=== PATIENT | male | born 1985 | race Caucasian/White ===

== ENCOUNTER 2021-10-16 11:22 | Emergency (ER) | payer BC, OTHER ==
[~2021-10-16] VITALS: Ht 182.9 cm; Wt 86.2 kg
[2021-10-16] MEDS ORDERED: CEFTRIAXONE 500 MG VIAL IM ONE (12:00)
[2021-10-16] MEDS ORDERED: CEFTRIAXONE 500 MG VIAL ONE (12:05)
[2021-10-16 12:19] LABS: *BILIRUBIN,URIN NEGATIVE (NEGATIVE); *BLOOD, URINE NEGATIVE (NEGATIVE); *CLARITY,URINE CLEAR (CLEAR); *COLOR,URINE LIGHT YELLOW (YELLOW); *KETONES,URINE NEGATIVE (NEGATIVE); *UROBILINOGEN,URINE 0.2 E.U./dl (NORMAL); LEUKOCYTE ESTERASE ,URINE NEGATIVE (NEGATIVE); NITRITE, URINE NEGATIVE (NEGATIVE); UGLUCOSE NEGATIVE (NEGATIVE)
[2021-10-16] MEDS ORDERED: DOXY-326 PO (12:19)
--- NOTE | 2021-10-16 12:52 | NUR ---
IM injection given as noted, patient tolerated it well, no reactions. DC , Rx and follow up instructions given and explained to patient who states he understands all instructions
[2021-10-18 04:06] LABS: *GC NAA Negative (Negative); *TRIC.VAG. NAA Negative (Negative)
== END 2021-10-16 12:54 | disposition home or self-care (01) ==
LOC: ER 11:22
DX: R30.0 Dysuria (principal)
CPT/HCPCS: 81003; 87491; 96372; 99283; J0696; A4663

== ENCOUNTER 2022-05-07 15:38 | Emergency (ER) | payer BC ==
[~2022-05-07] VITALS: Ht 180.3 cm; Wt 86.2 kg
[~2022-05-07 15:38] MED LIST: DOXY-326 PO
[2022-05-07] MEDS ORDERED: ONDANSETRON ODT 4 MG TAB.RAPDIS SL ONE (18:45)
[2022-05-07] MEDS ORDERED: ONDANSETRON ODT 4 MG TAB.RAPDIS ONE (18:46)
[2022-05-07] MEDS ORDERED: IOHEXOL 300MG/ML 100 ML INFUS..BTL ONE (18:47)
[2022-05-07] MEDS ORDERED: SWABABLE VALVE TRANSFER SET EA MC ONE (18:47)
[2022-05-07] MEDS ORDERED: IV NORMAL SALINE 250 ML IV ONE (18:48)
--- NOTE | 2022-05-07 19:00 | NUR ---
Recieved report from Doretha RANKIN.
[2022-05-07] MEDS ORDERED: ONDA4TAB5 PO (20:08)
--- NOTE | 2022-05-07 20:37 | NUR ---
Patient discharged to home in stable condition. A/O x4. NAD noted. Ambulatory with a steady gait. All belongings with patient. Written and verbal after care instructions given. Patient verbalizes understanding of instructions. Stressed follow up or return to ER for worsening s/s.
[2022-05-07 20:53] VITALS: BP 122/75
== END 2022-05-07 20:37 | disposition home or self-care (01) ==
LOC: ER 15:38
DX: R10.31 Right lower quadrant pain (principal); R11.0 Nausea
CPT/HCPCS: 99285; 74177; Q9967; A4663; Q0162

== ENCOUNTER 2022-05-10 00:12 | Emergency (ER) | payer BC ==
[~2022-05-10] VITALS: Ht 182.9 cm; Wt 71.2 kg
[~2022-05-10 00:12] MED LIST changes: +ONDA4TAB5 PO
[2022-05-10] MEDS ORDERED: KETOROLAC TROMETHAMINE 15 MG INJ IVP ONE (01:00)
[2022-05-10] MEDS ORDERED: IV NORMAL SALINE 1000 ML BAG IV ONE (01:00)
[2022-05-10] MEDS ORDERED: METOCLOPRAMIDE HCL 10 MG/2 ML VIAL IV ONE (01:00)
[2022-05-10] MEDS ORDERED: diphenhydrAMINE 50 MG/1 ML VIAL IV ONE (01:00)
[2022-05-10 01:18] LABS: *BILIRUBIN,URIN NEGATIVE (NEGATIVE); *BLOOD, URINE NEGATIVE (NEGATIVE); *CLARITY,URINE CLEAR (CLEAR); *COLOR,URINE YELLOW (YELLOW); *KETONES,URINE NEGATIVE (NEGATIVE); *UROBILINOGEN,URINE 0.2 E.U./dl (NORMAL); LEUKOCYTE ESTERASE ,URINE NEGATIVE (NEGATIVE); NITRITE, URINE NEGATIVE (NEGATIVE); UGLUCOSE NEGATIVE (NEGATIVE)
[2022-05-10 01:18] LABS: CREATININE 1.2 mg/dL (0.6-1.3); POTASSIUM 4.4 mmol/L (3.5-5.1)
[2022-05-10 01:21] LABS: HEMATOCRIT 44.4 % (36.7-47.1); MEAN CORPUSCULAR HEMOGLOBIN 29.6 uug (23.8-33.4); MEAN CORPUSCULAR VOLUME 88.6 fL (73.0-96.2); PLATELET COUNT (AUTO) 232 K/uL (152-348)
[2022-05-10 01:24] LABS: BILIRUBIN,DIRECT 0.2 mg/dL (0.0-0.2); BILIRUBIN,TOTAL 0.8 mg/dL (0.2-1.0)
[2022-05-10] MEDS ORDERED: diphenhydrAMINE 50 MG/1 ML VIAL ONE (01:49)
[2022-05-10] MEDS ORDERED: METOCLOPRAMIDE HCL 10 MG/2 ML VIAL ONE (01:49)
[2022-05-10] MEDS ORDERED: KETOROLAC TROMETHAMINE 30 MG INJ ONE (01:49)
[2022-05-10] MEDS ORDERED: NAPR-1164 PO (03:33)
[2022-05-10] MEDS ORDERED: PROC10TA29 PO (03:33)
[2022-05-10] MEDS ORDERED: SUMA100T16 PO (03:33)
[2022-05-10 05:29] VITALS: BP 159/74
[2022-05-10] MEDS ORDERED: MIDODRINE HCL 5 MG TABLET ONE (13:20)
== END 2022-05-10 05:38 | disposition home or self-care (01) ==
LOC: ER 00:18
DX: R10.31 Right lower quadrant pain (principal); R11.0 Nausea; Z82.49 Family history of ischemic heart disease and other diseases of the circulatory system; G43.909 Migraine, unspecified, not intractable, without status migrainosus
CPT/HCPCS: 99284; 96374; 96361; 96375; 80076; 80048; 81003; 83735; 85025; 36415; J1200; J1885; J2765; J7040; A4663